=== PATIENT | male | born 1985 | race Two or more races ===

== ENCOUNTER 2025-07-16 22:59 | Emergency (ER) | payer BC, OTHER ==
[~2025-07-16] VITALS: Ht 175.3 cm; Wt 95.4 kg
[2025-07-17 00:27] VITALS: RESP 18; TEMP 97.7; O2SAT 98
[2025-07-17] MEDS ORDERED: IBUP-1456 PO (00:33)
[2025-07-17] MEDS ORDERED: CYCL-837 PO (00:33)
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
[2025-07-17 00:38] VITALS: BP 132/87
[2025-07-17] MEDS: IBUPROFEN 800 MG TAB PO ONE (00:39)
[2025-07-17 00:46] VITALS: PULSE 79
--- NOTE | 2025-07-17 06:29 | ECG ---
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
== END 2025-07-17 00:43 | disposition home or self-care (01) ==
LOC: ER 22:59
DX: S16.1XXA Strain of muscle, fascia and tendon at neck level, initial encounter (principal); S29.012A Strain of muscle and tendon of back wall of thorax, initial encounter; R51.9 Headache, unspecified; R07.89 Other chest pain; Z79.899 Other long term (current) drug therapy; V43.52XA Car driver injured in collision with other type car in traffic accident, initial encounter; Y93.89 Activity, other specified; Y92.488 Other paved roadways as the place of occurrence of the external cause; Y99.8 Other external cause status
CPT/HCPCS: 36415; 84484; 93005